=== PATIENT | female | born 2000 | race Caucasian/White ===

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

== ENCOUNTER 2023-12-14 02:44 | Emergency (ER) | payer OTHER, SELFPAY ==
[2023-12-14 02:53] VITALS: BP 127/66; PULSE 62; RESP 16; TEMP 36.8; O2SAT 100; BMI 22.4
[2023-12-14 03:04] VITALS: PULSE 64; O2SAT 99
[2023-12-14 03:16] LABS: Urine Volume 10mL (spun)
[2023-12-14 03:17] LABS: Bacteria Urine Few (2-10); Culture Indicated Urine Cult Not Indicated; RBC Urine 1-5/HPF (0-5/HPF); Squamous Epithelial Cell Urine 1-5 /HPF (0-5/HPF); WBC Urine 1-5/HPF (0-5/HPF)
--- NOTE | 2023-12-14 03:27 | DI.CT.S_ITS ---
PROCEDURE: CT KIDNEY URETER BLADDER (KUB) INDICATIONS: flank pain hematuria TECHNIQUE: Axial sections were acquired from the lung bases to the pubic symphysis. Coronal and sagittal reformats were performed. For radiation dose reduction, the following was used: automated exposure control, adjustment of mA and/or kV according to patient size. COMPARISON: [facility], CT, CT ABDOMEN PELVIS W CON, 09/21/2021, 22:30. FINDINGS: Image quality: Diagnostic. Lower Chest: No significant findings. URINARY: Right Kidney: 2 small 1 mm calculi in the inferior pole. No hydronephrosis. Right Ureter: No hydroureter. Left Kidney: 1 mm calculus in the inferior pole. No hydronephrosis. Left Ureter: No hydroureter. Bladder: Normal wall thickness. No stones. ABDOMEN: Liver: No contour-deforming solid mass. Gallbladder: No radiopaque gallstones or wall thickening. Biliary ducts: No biliary dilation. Pancreas: No ductal dilation. Spleen: Size is within normal limits. Adrenal Glands: No adrenal nodules. Stomach and Bowel: Normal colonic caliber, without significant wall thickening. There is a 1.3 x 1.8 cm oval shaped fat lobule with peripheral hyperdensity anterior to the cecum, suspicious for epiploic appendagitis. Peritoneum: No abnormal intraperitoneal fluid. No free air. Ventral Wall: No hernia. Abdominal Nodes: No enlarged retroperitoneal or mesenteric lymph nodes. Vessels: Aorta and inferior vena cava are normal in size. PELVIS: Pelvic Organs: Unremarkable. Pelvic Nodes: Unremarkable. Miscellaneous: No inguinal hernias are seen. Bones: Unremarkable. IMPRESSION: 1. Tiny renal calculi bilaterally. No hydronephrosis. 2. Suspect epiploic appendagitis adjacent to the cecum. Differential diagnosis are fat necrosis involving the omentum and a small lipoma. No significant discrepancy with the [facility] radiology preliminary report. Dictated by: Neli Hendricks M.D. on 12/14/2023 at 7:43 Approved by: Neli Hendricks M.D. on 12/14/2023 at 9:00
[2023-12-14 03:30] VITALS: BP 122/66; PULSE 66; RESP 17; O2SAT 98
[2023-12-14 03:40] VITALS: BP 110/57; PULSE 79; RESP 17; O2SAT 97
--- NOTE | 2023-12-14 03:48 | ED.FEMALEGU ---
HPI - Female Genitourinary General Chief complaint: Urogenital-Female Stated complaint: blood in urine Time Seen by Provider: 12/14/23 03:13 Source: patient Mode of arrival: Ambulatory History of Present Illness HPI Narrative: 23-year-old female here with dysuria frequency and right flank pain. She is also noticed hematuria. Hematuria was noted tonight for the 1st time. She says she had symptoms of dysuria and frequency since September of 2023, she has been seen by a urologist in [place] for this and apparently had a cystoscopy that was unrevealing. Urine cultures have thus far been negative. Reviewing her records here at [place], she was seen in late August of 2023, urine culture from that visit was no growth. No history of kidney stones. Otherwise healthy. Related Data Home Medications Medication Instructions Recorded Confirmed fludrocortisone 0.1 mg tablet 0.1 mg PO DAILY 12/14/23 12/14/23 Previous Rx's Medication Instructions Recorded ondansetron 4 mg disintegrating 4 mg PO Q8H PRN nausea and 09/21/21 tablet vomiting #10 tabs Allergies Allergy/AdvReac Type Severity Reaction Status Date / Time latex Allergy Verified 12/14/23 03:07 Patient History Surgical History (Updated 12/14/23 @ 03:05 by Brenda Frias RN) Hx of cystoscopy Exam Initial Vital Signs Initial Vital Signs: Vital Signs Temperature 98.2 F 12/14/23 02:53 Pulse Rate 62 12/14/23 02:53 Respiratory Rate 16 12/14/23 02:53 Blood Pressure 127/66 12/14/23 02:53 Pulse Oximetry 100 12/14/23 02:53 Oxygen Delivery Method Room Air 12/14/23 02:53 Const General: healthy appearing and No acute distress Resp Effort & Inspection: normal respiratory effort Cardio Other: Normal heart rate GI Other: Abdomen is soft nontender except for some mild suprapubic tenderness no guarding she has mild right CVAT Skin Other: Warm and dry Course Orders Ordered: ED Orders 12/14/23 02:57 Urine Microscopic Stat 12/14/23 03:27 CT kidney ureter bladder (KUB) Stat 12/14/23 03:52 Urine Culture Stat Vital Signs Vital signs: Vital Signs - 8 hr 12/14/23 02:53 12/14/23 03:04 12/14/23 03:30 Temperature 98.2 F Pulse Rate 62 64 Respiratory Rate 16 Blood Pressure 127/66 122/66 Pulse Oximetry 100 99 Oxygen Delivery Method Room Air 12/14/23 03:30 12/14/23 03:40 12/14/23 03:40 Temperature Pulse Rate 66 79 Respiratory Rate 17 17 Blood Pressure 110/57 L Pulse Oximetry 98 97 Oxygen Delivery Method Room Air Room Air MDM - Female Genitourinary Lab Data Lab results narrative: Urine dip is positive protein and occult blood, urine micro shows a few bacteria. No pyuria I doubt that this is reflective of an infection Labs: Lab Results 12/14/23 Range/Units 02:57 Urine RBC 1-5/hpf D (0-5/HPF) Urine WBC 1-5/hpf (0-5/HPF) Ur Squamous Epith Cells 1-5 /hpf (0-5/HPF) Urine Bacteria Few (2-10) H (None) Ur Culture Indicated? Cult not indicated Vol Urine Centrifuged 10ml (spun) Point of Care Testing Test Results Negative Urine Dip Bedside Urine Glucose Negative Bedside Urine Bilirubin - Negative Bedside Urine Ketone - Negative Urine Specific [place] 1.030 Bedside Urine Occult Blood + Bedside Urine pH 6.0 Bedside Urine Protein +/- 15 Bedside Urine Urobilinogen - Negative Bedside Urine Nitrite - Negative Bedside Urine Leukocytes - Negative Esterase Imaging Data CT scan - abdomen/pelvis: My Impression: On my independent review, there is a punctate right renal stone without ureteral stone no hydronephrosis bladder wall is not thickened Radiologist's Impression: Preliminary interpretation by Radiology ?focal inflammatory change with central fat adjacent to the cecum compatible with epiploic appendagitis. Bilateral nephrolithiasis. No evidence of colitis diverticulitis bowel obstruction obstructive uropathy or acute appendicitis. Incidental findings as detailed. [facility] Narrative Medical decision making narrative: A 23-year-old female with an approximately 3 month history now of dysuria and frequency. Presents to the emergency department tonight concerned because she also noticed hematuria. She has not having fevers she has having a little bit of right flank pain and has mild right CVAT. Considered the possibility of ureteral stone or pyelonephritis. CT does not show evidence of ureteral stone, urinalysis does not support pyelonephritis although urine culture was forced. At this point I do not think antibiotics are indicated and patient was advised of this. I recommended she follow up with her urologist and primary care provider soon. Discharge Plan Departure Patient Disposition: Home Clinical Impression: Hematuria Qualifiers: Hematuria type: gross Qualified Code(s): R31.0 - Gross hematuria Activity Restrictions/Additional Instructions: Workup today is reassuring. No serious cause for bloody urine is identified. I would recommend you discuss this with your urologist and primary care provider soon. Urine does not appear to be infected, I did order a urine culture but would not recommend antibiotics at this point. Additionally, CT looking for kidney stone shows stones in the kidneys which are small and not likely to be symptomatic. There is no stone identified in the ureter between the kidney and the bladder which is typically where symptoms are observed. If you are having increasing pain fevers vomiting or other acute symptoms recheck in the emergency department. Prescriptions: No Action ondansetron 4 mg tablet,disintegrating 4 mg PO Q8H PRN (Reason: nausea and vomiting) Qty: 10 0RF fludrocortisone 0.1 mg tablet 0.1 mg PO DAILY Referrals: ProviderKendell [Primary Care Provider] - Stand Alone Forms: Patient Portal/API
[2023-12-14 04:22] VITALS: BP 151/70; PULSE 62; RESP 17; TEMP 36.7; O2SAT 99
== END 2023-12-14 04:23 | disposition home or self-care (01) ==
PROVIDERS: Emergency Provider Emergency Medicine
DX: R31.0 Gross hematuria (principal); R30.0 Dysuria
CPT/HCPCS: 74176; 81003; 81015; 81025; 87077; 87086; 87186; 99284

== ENCOUNTER 2024-03-26 05:45 | Emergency (ER) | payer OTHER, SELFPAY ==
[2024-03-26 05:50] VITALS: BP 128/73; PULSE 66; RESP 18; TEMP 36.4; O2SAT 100; BMI 24.2
--- NOTE | 2024-03-26 06:04 | ED.NAVMDI ---
HPI - Nausea/Vomiting/Diarrhea General Chief complaint: Nausea/Vomiting/Diarrhea Stated complaint: N/V, blood in urine Time Seen by Provider: 03/26/24 05:49 Source: patient Mode of arrival: Ambulatory History of Present Illness HPI Narrative: 23-year-old female who is here for evaluation of multiple episodes of vomiting this morning and when she urinated this morning shows that there was blood in her urine. She was not having any vaginal bleeding although yesterday she did have some vaginal discharge. Her last normal menstrual cycle and did about 1 week ago. She denies any fevers. Pain is located in the right lower quadrant/right flank area. She states that she had a cystoscopy of the end of last year after having multiple weeks/months of UTI like symptoms without a definitive infection. She had a CT scan performed which showed right-sided kidney stone. A suspect from what she was describing this was a stone in the kidney not a ureteral stone. She is still feeling nauseous. No change in bowel habits. No prior abdominal surgeries. Related Data Allergies Allergy/AdvReac Type Severity Reaction Status Date / Time latex Allergy Mild Rash Verified 03/26/24 06:26 Review of Systems Constitutional Constitutional: Reports system reviewed and no additional complaints, except as documented Gastrointestinal Gastrointestinal: Reports system reviewed and no additional complaints, except as documented Genitourinary Genitourinary: Reports system reviewed and no additional complaints, except as documented Integumentary/Breasts Skin/Breast: Reports system reviewed and no additional complaints, except as documented Neurologic Neurologic: Reports system reviewed and no additional complaints, except as documented Exam Initial Vital Signs Initial Vital Signs: Vital Signs Temperature 97.5 F L 03/26/24 05:50 Pulse Rate 66 03/26/24 05:50 Respiratory Rate 18 03/26/24 05:50 Blood Pressure 128/73 03/26/24 05:50 Pulse Oximetry 100 03/26/24 05:50 Oxygen Delivery Method Room Air 03/26/24 05:50 Resp Effort & Inspection: normal respiratory effort Auscultation: clear to auscultation bilaterally Cardio Rate: regular rate Rhythm: regular rhythm GI Inspection: normal to inspection and non-distended Palpation: soft, No firm, No guarding and tender Back/Spine/Pelvis Back: No CVA tenderness Skin General: no rashes or lesions noted Neuro General: patient alert, patient awake and moves all extremities Extrem General: capillary refill normal Course Orders Ordered: ED Orders 03/26/24 06:00 Test Urine Stat Urine Microscopic Stat 03/26/24 06:15 Complete Blood Count AUTO DIFF Stat Comprehensive Metabolic Panel Stat Lipase Stat 03/26/24 06:16 CK [Creatine Kinase] Stat 03/26/24 06:18 CT kidney ureter bladder (KUB) Stat Ondansetron HCl (Ondansetron 4 Mg Odt Prepack) 1 bottle MISC DIRECTED ONE Stop: 03/26/24 06:59 Discontinued Medications Ondansetron HCl (Ondansetron 4 Mg Odt) 4 mg SL NOW ONE Stop: 03/26/24 06:05 Last Admin: 03/26/24 06:07 Dose: 4 mg Documented By: RAMBO Vital Signs Vital signs: Vital Signs - 8 hr 03/26/24 05:50 Temperature 97.5 F L Pulse Rate 66 Respiratory Rate 18 Blood Pressure 128/73 Pulse Oximetry 100 Oxygen Delivery Method Room Air MDM - Nausea/Vomiting/Diarrhea Lab Data Attestation: I reviewed the patient's lab results. 03/26/24 06:15 03/26/24 06:15 Labs: Lab Results 03/26/24 03/26/24 Range/Units 06:00 06:15 WBC 8.8 (4.5-11.0) X10^3/uL RBC 4.74 (4.0-5.2) X10^6/uL Hgb 12.4 (12.0-16.0) g/dL Hct 37.3 (36-46) % MCV 78.7 L (80-100) fL MCH 26.1 (26-34) PG MCHC 33.2 (30-36) % RDW 13.6 (11.6-14.8) % Plt Count 308 (150-400) X10^3/uL Neut % (Auto) 71.1 (50-75) % Lymph % (Auto) 19.4 L (25-40) % [place] % (Auto) 6.6 (3-14) % Eos % (Auto) 2.1 (2-4) % Baso % (Auto) 0.8 (0-2) % Neut # (Auto) 6300 (3706-4392) /uL Lymph # (Auto) 1700 (4572-7516) /uL [place] # (Auto) 600 (0-900) /uL Eos # (Auto) 200 (0-450) /uL Baso # (Auto) 100 (0-100) /uL Sodium 139 (137-145) mmol/L Potassium 4.0 (3.4-5.1) mmol/L Chloride 108 H (98-107) mmol/L Carbon Dioxide 24 (22-32) mmol/L BUN 11 (7-17) mg/dL Creatinine 0.60 (0.52-1.04) mg/dL Estimated GFR > 60 (>60) mL/min BUN/Creatinine Ratio 18.3 (6-22) Glucose 116 H (70-100) mg/dL Calcium 8.5 (8.4-10.2) mg/dL Total Bilirubin 0.5 (0.2-1.3) mg/dL AST 25 (14-36) IU/L ALT 19 (<35) IU/L Alkaline Phosphatase 68 (38-126) U/L Total Creatine Kinase 63 (30-135) U/L Total Protein 7.2 (6.3-8.2) g/dL Albumin 4.4 (3.5-5.0) g/dL Globulin 2.8 (1.7-4.1) g/dL Albumin/Globulin Ratio 1.6 (1.0-2.8) Lipase 60 (23-300) U/L Urine RBC 0-1/hpf (0-5/HPF) Urine WBC None seen (0-5/HPF) Ur Squamous Epith Cells 1-5 /hpf (0-5/HPF) Urine Bacteria None seen (None) Ur Culture Indicated? Cult not indicated Vol Urine Centrifuged 10ml (spun) Urine Test Negative (Negative) Urine Dip Bedside Urine Glucose Negative Bedside Urine Bilirubin - Negative Bedside Urine Ketone - Negative Urine Specific [place] 1.030 Bedside Urine Occult Blood ++ Bedside Urine pH 6.0 Bedside Urine Protein - Negative Bedside Urine Urobilinogen - Negative Bedside Urine Nitrite - Negative Bedside Urine Leukocytes - Negative Esterase Imaging Data CT scan - abdomen/pelvis: Radiologist's Impression: Right more than left minimal to mild prominence of the renal collecting system without evidence of obstructing stones. Finding may be incidental, due to recent passage of a right-sided stone, or secondary to infection. 3 cm right ovarian follicle/cyst in the presence of right hemipelvic pain further evaluation with ultrasound would be of value. Unremarkable appendix MDM Narrative Medical decision making narrative: Symptoms started this morning. Fairly sudden onset of right lower quadrant abdominal pain and vomiting. She was nauseous here in the ER. Does have right lower quadrant abdominal pain. Was told that she did have a kidney stone on the right side and a prior CT scan although further discussion with her suspect that this was not a ureteral stone. Her labs are unremarkable. test is negative. Urinalysis does not have definitive signs of an infection. After nausea medication here in the emergency department patient reports improvement of symptoms. Her labs are unremarkable. Her urinalysis today is not consistent with an infection. Her appendix is unremarkable on the CT scan. The location of the discomfort is more abdominal and LEs adnexal so I feel that the cyst is unlikely to be the cause of her discomfort. I have low suspicion for torsion. Will discharge patient home with return precautions and follow-up instructions. She expressed understanding and agreement. Discharge Plan Departure Patient Disposition: Home Clinical Impression: Abdominal pain, Vomiting, Hematuria Instructions: DI for Abdominal Pain-Adult, DI for Vomiting -- Adult Activity Restrictions/Additional Instructions: I do recommend that you take the nausea medication as needed. Contact your primary care provider for a follow-up. Return to the emergency department for new or worsening symptoms. Stand Alone Forms: Patient Portal/API, Work Release Note
[2024-03-26] MEDS: ONDANSETRON 4 MG ODT SL (06:07)
[2024-03-26 06:13] LABS: Pregnancy Test Urine Negative (Negative)
[2024-03-26 06:14] LABS: Bacteria Urine None Seen; Culture Indicated Urine Cult Not Indicated; RBC Urine 0-1/HPF (0-5/HPF); Squamous Epithelial Cell Urine 1-5 /HPF (0-5/HPF); Urine Volume 10mL (spun); WBC Urine None Seen (0-5/HPF)
--- NOTE | 2024-03-26 06:18 | DI.CT.S_ITS ---
PROCEDURE: CT KIDNEY URETER BLADDER (KUB) INDICATIONS: R sided flank pain eval for stone TECHNIQUE: Axial sections were acquired from the lung bases to the pubic symphysis. Coronal and sagittal reformats were performed. For radiation dose reduction, the following was used: automated exposure control, adjustment of mA and/or kV according to patient size. COMPARISON: None. FINDINGS: Image quality: Diagnostic. Lower Chest: No significant findings. URINARY: Right Kidney: Punctate nonobstructive stone in the lower pole. Right Ureter: No hydroureter. Left Kidney: No stones or hydronephrosis. Left Ureter: No hydroureter. Bladder: Normal wall thickness. No stones. ABDOMEN: Liver: No contour-deforming solid mass. Gallbladder: No radiopaque gallstones or wall thickening. Biliary ducts: No biliary dilation. Pancreas: No ductal dilation. Spleen: Size is within normal limits. Adrenal Glands: No adrenal nodules. Stomach and Bowel: Normal colonic caliber, without significant wall thickening. Normal appendix Peritoneum: No abnormal intraperitoneal fluid. No free air. Ventral Wall: No hernia. Abdominal Nodes: No enlarged retroperitoneal or mesenteric lymph nodes. Vessels: Aorta and inferior vena cava are normal in size. PELVIS: Pelvic Organs: Unremarkable. Pelvic Nodes: Unremarkable. Miscellaneous: No inguinal hernias are seen. Bones: Unremarkable. IMPRESSION: Punctate right nonobstructive stone No evidence of obstruction hydronephrosis. Dictated by: Simon Domingo M.D. on 03/26/2024 at 8:32 Approved by: Simon Domingo M.D. on 03/26/2024 at 8:35
[2024-03-26 06:20] LABS: Add Manual Diff / Slide Review NO; Basophils Absolute Auto 100 /uL (0-100); Basophils Percent Auto 0.8 % (0-2); Eosinophils Absolute Auto 200 /uL (0-450); Eosinophils Percent Auto 2.1 % (2-4); Hematocrit 37.3 % (36-46); Hemoglobin 12.4 g/dL (12.0-16.0); Lymphocytes Absolute Auto 1700 /uL (1100-4500); Lymphocytes Percent Auto 19.4 % (25-40); Mean Corpuscular HGB Conc 33.2 % (30-36); Mean Corpuscular Hemoglobin 26.1 PG (26-34); Mean Corpuscular Volume 78.7 fL (80-100); Monocytes Absolute Auto 600 /uL (0-900); Monocytes Percent Auto 6.6 % (3-14); Neutrophils Absolute Auto 6300 /uL (1500-7000); Neutrophils Percent Auto 71.1 % (50-75); Platelet Count 308 X10^3/uL (150-400); Red Blood Cell Count 4.74 X10^6/uL (4.0-5.2); Red Cell Distribution Width 13.6 % (11.6-14.8); White Blood Cell Count 8.8 X10^3/uL (4.5-11.0)
[2024-03-26 06:36] LABS: Alanine Aminotransferase 19 IU/L (<35); Albumin 4.4 g/dL (3.5-5.0); Albumin Globulin Ratio 1.6 (1.0-2.8); Alkaline Phosphatase 68 U/L (38-126); Aspartate Aminotransferase 25 IU/L (14-36); BUN Creatinine Ratio 18.3 (6-22); Bilirubin Total 0.5 mg/dL (0.2-1.3); Blood Urea Nitrogen 11 mg/dL (7-17); Calcium 8.5 mg/dL (8.4-10.2); Carbon Dioxide 24 mmol/L (22-32); Chloride 108 mmol/L (98-107); Estimated Glomerular Filt Rate > 60 mL/min (>60); Globulin 2.8 g/dL (1.7-4.1); Glucose 116 mg/dL (70-100); HEMOLYSIS < 15 (0-50); Lipase 60 U/L (23-300); Sodium 139 mmol/L (137-145); Total Protein 7.2 g/dL (6.3-8.2)
[2024-03-26 06:45] LABS: Creatine Kinase 63 U/L (30-135)
[2024-03-26] MEDS: ONDANSETRON 4 MG ODT PREPACK 1 BOTTLE MISC (07:03)
== END 2024-03-26 07:13 | disposition home or self-care (01) ==
LOC: ED 07:02
PROVIDERS: Emergency Provider Emergency Medicine
DX: R10.9 Unspecified abdominal pain (principal); R11.10 Vomiting, unspecified; R31.9 Hematuria, unspecified
CPT/HCPCS: 74176; 80053; 81003; 81015; 81025; 82550; 83690; 85025; 99283; 99284